=== PATIENT | male | born 1985 | race Caucasian/White ===

== ENCOUNTER → 2017-05-25 | Outpatient (CLI) | payer BC ==
--- NOTE | ~2017-05-25 | ST ---
Unit #: [id number] #: [id number] Patient: SUMEET MAYFIELD [id number] [address] [address] [id number] O MR#: [id number] NAME: SUMEET MAYFIELD : 1985 SEX: M STUDY DATE/TIME: 05/25/2017 UNIT: [facility] ROOM: STUDY DESCRIPTION: Attending Physician: Nafisa Riggs M.D. Referring Physician: Nafisa Riggs M.D. Primary Care Physician: Nafisa Riggs M.D. CARDIOLOGY REPORT EXAM EKG/nuclear part of the test. FINDINGS Patient's baseline heart rate is 82 beats per minute. Blood pressure is 130/88. Patient exercised on standard Zack protocol for 7 minutes and 4 seconds. Achieved peak heart rate of 130/88. Patient's baseline EKG showing sinus rhythm with left ventricular hypertrophy, particularly in limb leads. During exercise, patient has [address] depression in the limb lead. In recovery, those EKG changes resolved. Patient received 11.25 mCi of Cardiolite at rest and 34.4 mCi of Cardiolite during stress. Both sets of images were compared. Patient shows fairly uniform uptake of radiotracer. No defect was noted. The patient also has gated SPECT scan which shows normal LV size and function. No wall motion abnormality detected. Ejection fraction is 62%. INTERPRETATION OF TEST 1. Average exercise tolerance. 2. EKG part of the test is nondiagnostic for myocardial ischemia because the patient has left ventricular hypertrophy. Those ST and T changes are due to LVH. 3. Nuclear part of the test is negative for myocardial ischemia. 4. Gated SPECT scan showed normal LV size and function. Dictated by... Kevin Daniel TD: 05/27/2017 10:19 JOB #: [id number] CC: Nafisa Riggs M.D. Unit #: [id number] #: [id number] Patient: SUMEET MAYFIELD CARDIOLOGY REPORT Page 1 of 1 X Domenico Millan MD CARDIOLOGY REPORT
== END | disposition home or self-care (01) ==
LOC: CNUC 07:52
DX: R07.89 Other chest pain (principal); I51.7 Cardiomegaly
CPT/HCPCS: 78452; 93017; A9500

== ENCOUNTER → 2017-07-13 | Outpatient (CLI) | payer BC ==
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
== END | disposition home or self-care (01) ==
LOC: CRAD 10:07
DX: R07.89 Other chest pain (principal); R05 Cough
CPT/HCPCS: 71020; 71120

== ENCOUNTER → 2017-07-27 | Outpatient (CLI) | payer BC ==
--- NOTE | ~2017-07-27 | CT57 ---
[facility] A Service of [facility] RADIOLOGY TEXT RESULTS PATIENT: SUMEET MAYFIELD LOCATION: [facility] : [birth year] UNIT #: [id number] AGE: [address]: Nafisa Riggs MD SEX: M ORDER DR: [id number] [place] [id number] [facility]. [place], [place] [address] [id number] O MR#: [id number] Acc #: [id number] NAME: SUMEET MAYFIELD : 1985 SEX: M STUDY DATE/TIME: 07/27/2017 8:29 UNIT: [facility] ROOM: STUDY DESCRIPTION: CT Chest Wo Cont Attending Physician: Nafisa Riggs M.D. Referring Physician: Nafisa Riggs M.D. Ordering Physician: Nafisa Riggs M.D. Primary Care Physician: Nafisa Riggs M.D. MEDICAL IMAGING REPORT This report is preliminary unless electronic signature is present EXAM CT chest without contrast INDICATIONS Sternal pain for about 2-3 months. Recent x-ray suggesting possible nondisplaced sternal fracture. TECHNIQUE CT chest performed without contrast. Coronal and sagittal reformatted images were obtained. This CT exam was performed with one or more of the following radiation dose reduction techniques: automatic exposure control, adjustment of mA and/or kV according to patient size, and iterative reconstruction. COMPARISON Comparison is made with the sternal x-ray from 07/13/2017. FINDINGS The lung vallejo are clear. There is no lymphadenopathy or pleural effusion. There is no pericardial effusion. Limited imaging of the upper abdomen is unremarkable. Bone windows are unremarkable. There is no evidence for sternal fracture. IMPRESSION No evidence for sternal fracture. Dictated by... Natalio Hanna M.D. THIS IS AN ELECTRONICALLY VERIFIED REPORT Natalio Hanna M.D. at 07/28/2017 8:00 AM ARS/orlin [facility] A Service of [facility] RADIOLOGY TEXT RESULTS PATIENT: SUMEET MAYFIELD LOCATION: [facility] #: [id number] : [birth year] UNIT #: [id number] AGE: [address]: Nafisa Riggs MD SEX: M ORDER DR: TD: 07/27/2017 16:13 JOB #: [id number] MEDICAL IMAGING REPORT Page 1 of 1 COPY
== END | disposition home or self-care (01) ==
LOC: CCAT 07:57
DX: T14.8 Other injury of unspecified body region (principal)
CPT/HCPCS: 71250